=== PATIENT | male | born 1980 | race Caucasian/White ===

== ENCOUNTER 2023-03-03 15:45 | Emergency (ER) | payer OTHER, SELFPAY ==
--- NOTE | ~2023-03-03 | XR_ITS ---
EXAMINATION: XR elbow LT min 3V DATE: 03/03/2023 16:23 INDICATION: Left elbow injury and pain. TECHNIQUE: 4 views of left elbow were obtained. COMPARISON: None. FINDINGS: Bone alignment is normal. No fracture. Joint spaces are well maintained. There is no elbow joint effusion. IMPRESSION: 1. Normal left elbow. Reviewed, dictated and finalized at location A. IMPRESSION: 1. Normal left elbow.
[2023-03-03 15:55] VITALS: BP 150/96; PULSE 100; RESP 18; TEMP 36.7; O2SAT 99
--- NOTE | 2023-03-03 16:07 | ED.UPPEXIN ---
HPI - Extremity Injury (Upper) General Chief Complaint: Extremity Injury, Upper Stated Complaint: Fall Injury/Left Arm Pain Time Seen by Provider: 03/03/23 15:52 Source: patient and RN notes reviewed History of Present Illness HPI narrative: Patient is a 42-year-old male presenting with complaints of left elbow pain. Patient states that he was walking down the stairs when his dog tripped him, causing him to fall down 5 steps approximately 2 weeks ago. Patient denies hitting his head or loss of consciousness during the fall. States that he has been experiencing constant aching with intermittent worsening pain with movement and positioning. States that the pain will radiate down his left arm. Denies numbness and sensation is intact. Pulses are present distal to the injury. He has full range of motion of his left arm, but reports some discomfort with flexion. Patient denies any other injury during the fall. Related Data Home Medications Medication Instructions Recorded Confirmed No Home Medications 03/03/23 03/03/23 Allergies Allergy/AdvReac Type Severity Reaction Status Date / Time No Known Allergies Allergy Unverified 03/03/23 16:06 Review of Systems Review of Systems: CONSTITUTIONAL: Denies fever, chills, or sweats. EYES: Denies visual changes, redness, or discharge. ENT: Denies otalgia and sore throat CARDIOVASCULAR: Denies chest pain, palpitations, or edema. RESPIRATORY: Denies cough or dyspnea. GASTROINTESTINAL: Denies abdominal pain, nausea, vomiting, or diarrhea. GENITOURINARY: Denies dysuria or hematuria. SKIN: Denies rash or itching. MUSCULOSKELETAL: Denies back pain or myalgia. Reports left elbow pain. NEUROLOGIC: Denies headache, numbness, or weakness. Pertinent positives per HPI. PMFSH Comments At the time of my signature, I reviewed and agree with the nursing past medical, surgical, social, and family history. There is no relevant family history pertinent to the patient complaint. Exam Narrative: GENERAL: This is a well-nourished, well-developed patient, in no apparent distress. HEAD: normocephalic, atraumatic. EYES: PERRL. Sclera clear/white. Vision is grossly intact. EARS: External ears normal, auditory canals clear and without drainage, TMs normal without perforation. Hearing grossly intact. NOSE: External nose normal with no obvious nasal discharge, nares without redness, no rhinorrhea. THROAT: Mucous membranes moist, posterior pharynx clear. NECK: Neck supple, non-tender without lymphadenopathy, masses or thyromegaly. CARDIOVASCULAR: Regular rate and rhythm without murmurs, gallops, or rubs. RESPIRATORY: Clear to auscultation. Breath sounds equal bilaterally. No wheezes, rales, or rhonchi. GASTROINTESTINAL: Abdomen soft, non-tender, nondistended. Bowel sounds are active. No hepato-splenomegaly, or palpable masses. No guarding. SKIN: warm, intact with no suspicious lesions or rash, good texture and turgor. NEURO: awake, alert, and oriented to person, place and time. There were no obvious focal neurologic abnormalities. EXTREMITIES: No clubbing, cyanosis, or edema. No joint tenderness, effusion, or edema noted. Left elbow mild tenderness. Full range of motion. Sensation intact. Pulses present. BACK: Nontender without deformity or crepitance. No flank tenderness. Course Course Level of Care: Express Care Visit Vital Signs Vital signs: Vital Signs Temperature 98.1 F 03/03/23 15:55 Pulse Rate 100 03/03/23 15:55 Respiratory Rate 18 03/03/23 15:55 Blood Pressure 150/96 H 03/03/23 15:55 Pulse Oximetry 99 03/03/23 15:55 Temperature 98.1 F 03/03/23 15:55 Pulse Rate 100 03/03/23 15:55 Respiratory Rate 18 03/03/23 15:55 Blood Pressure 150/96 H 03/03/23 15:55 Pulse Oximetry 99 03/03/23 15:55 Reviewed MDM - Extremity Injury (Upper) MDM Narrative Medical decision making narrative: The elbow is not swollen or deformed on inspection. The range of motion is not miller
== END 2023-03-03 16:45 | disposition home or self-care (01) ==
PROVIDERS: Emergency Provider Nurse Practitioner
DX: S50.02XA Contusion of left elbow, initial encounter (principal); W10.9XXA Fall (on) (from) unspecified stairs and steps, initial encounter
CPT/HCPCS: 73080; 99203; G0463